=== PATIENT | male | born 1950 | race African-American/Black ===

== ENCOUNTER 2020-01-27 07:02 | Emergency (ER) | payer OTHER ==
[~2020-01-27] VITALS: Ht 177.8 cm; Wt 64.0 kg
[2020-01-27] MEDS ORDERED: SODIUM CHLORIDE 0.9% 1,000 ML IV ONE (07:30)
[2020-01-27] MEDS ORDERED: ONDANSETRON HCL 4MG/2ML INJ IV STA (07:30)
[2020-01-27] MEDS ORDERED: MORPHINE SULFATE 4 MG/ML CPJ (NOT FOR IM USE) IV STA (07:30)
[2020-01-27 08:14] LABS: HEMATOCRIT. 30.2 % (42.0-52.0); MEAN CORPUSCULAR HEMOGLOBIN 31.2 pg (28.0-32.0); MEAN CORPUSCULAR VOLUME 94.3 fL (80.0-94.0); MEAN PLATELET VOLUME 7.9 fl (7.4-10.4); PLATELET 441 x1000/uL (130-400); RED CELL DISTRIBUTION WIDTH 15.6 % (11.6-14.6)
[2020-01-27 08:23] LABS: CHLORIDE 101 mEq/L (98-107)
[2020-01-27 08:58] LABS: PLATELET ESTIMATE INCREASED
[2020-01-27] MEDS ORDERED: LEVOFLOXACIN 500MG PREMIX 100 ML IV ONE (09:15)
[2020-01-27] MEDS ORDERED: SODIUM CHLORIDE 0.9% 1000ML BAG (SEPSIS BOLUS) IV ONE (09:15)
[2020-01-27 09:18] LABS: INR 1.1; PROTHROMBIN TIME 11.9 sec (9.6-11.0)
[2020-01-27 10:57] LABS: CLARITY URINE CLEAR (CLEAR); COLOR URINE DARK YELLOW (YELLOW); KETONES URINE TRACE (NEGATIVE); LEUKOCYTE ESTERASE URINE TRACE (NEGATIVE); NITRITE URINE POSITIVE (NEGATIVE); OCCULT BLOOD URINE NEGATIVE (NEGATIVE); PROTEIN URINE TRACE (NEGATIVE); SPECIFIC GRAVITY URINE 1.028 (1.005-1.030)
[2020-01-27 12:55] VITALS: BP 102/68
== END 2020-01-27 13:00 | disposition short-term general hospital (02) ==
LOC: ER 07:02 → CANBEDREQ 16:40
DX: S72.091A Other fracture of head and neck of right femur, initial encounter for closed fracture (principal); W01.198A Fall on same level from slipping, tripping and stumbling with subsequent striking against other object, initial encounter; Y93.89 Activity, other specified; Y92.122 Bedroom in nursing home as the place of occurrence of the external cause; E11.9 Type 2 diabetes mellitus without complications; I10 Essential (primary) hypertension; H54.7 Unspecified visual loss
CPT/HCPCS: 36415; 71045; 72192; 73502; 80053; 81003; 83605; 83690; 84484; 85025; 85610; 87040; 87086; 93005; 96361; 96365; 96375; 99285; J1956; J2270; J2405; J7030

== ENCOUNTER 2020-02-12 21:43 | Emergency (ER) | payer OTHER ==
[~2020-02-12] VITALS: Ht 167.6 cm; Wt 45.0 kg
[2020-02-12] MEDS ORDERED: ACETAMINOPHEN 325MG TABLET PO ONE (22:15)
[2020-02-12] MEDS ORDERED: LIDOCAINE HCL/EPINEPHRINE 1%-EPI 1:100,000 20 ML VIAL INFIL ONE (23:15)
[2020-02-13 01:44] VITALS: BP 148/74
== END 2020-02-13 01:47 | disposition home or self-care (01) ==
LOC: ER 21:43
DX: S01.111A Laceration without foreign body of right eyelid and periocular area, initial encounter (principal); W18.39XA Other fall on same level, initial encounter; Y93.89 Activity, other specified; Y92.89 Other specified places as the place of occurrence of the external cause; Y99.8 Other external cause status; E11.9 Type 2 diabetes mellitus without complications; I10 Essential (primary) hypertension
CPT/HCPCS: 12011; 70450; 70486; 99285; J3490